=== PATIENT | male | born 1970 | race Caucasian/White ===

== ENCOUNTER 2018-12-11 09:12 | Outpatient (REF) | payer BC, SELFPAY ==
[2018-12-11 22:05] LABS: BUN 15 mg/dL (7-18); CREATININE 1.11 mg/dL (0.70-1.30); Calcium 9.2 mg/dL (8.5-10.1); Chloride 104 mmol/L (98-107); Cholesterol 205 mg/dL (50-200); Glucose 91 mg/dL (70-100); HDL Cholesterol 65 mg/dL (40-60); LDL CHOLESTEROL 126 mg/dL (<100); Potassium 4.2 mmol/L (3.5-5.1); Sodium 141 mmol/L (136-145); Triglyceride 77 mg/dL (30-150)
== END 2018-12-11 09:32 ==
LOC: NCHCN 09:12
PROVIDERS: Visit Provider Internal Medicine
DX: Z13.220 Encounter for screening for lipoid disorders; Z00.00 Encounter for general adult medical examination without abnormal findings
CPT/HCPCS: 80048; 80061; 83721

== ENCOUNTER 2019-05-20 14:57 | Outpatient (REF) | payer BC, SELFPAY ==
[2019-05-20 22:00] LABS: Abs Immature Grans 0.01 k/cumm (0.0-0.09); HCT 37.3 % (40.0-50.0); HGB 12.3 g/dL (13.5-17.5); Mean Corpuscular Hemoglobin 30.4 pg (27.0-33.0); Mean Corpuscular Volume 92.1 fL (80-95); Mean Platelet Volume 11.4 fL (8.0-11.0); RBC 4.05 m/cumm (4.50-6.00); RBC Distribution Width 12.2 % (11.8-14.1); White Blood Cell Count 2.48 k/cumm (4.4-10.8)
[2019-05-20 22:44] LABS: Platelet Count 89 x1000/uL (130-400)
[2019-05-20 22:45] LABS: Absolute Eosinophil Count 0.02 k/cumm (0.0-0.7); Absolute Lymphocyte Count 1.14 k/cumm (1.2-3.4); Atypical Lymphocytes % 13
[2019-05-20 22:47] LABS: Burr Cells (echinocyte) 2+; Diff Comment Manual Differential
[2019-05-20 23:10] LABS: Absolute Neutrophil Count 0.82 k/cumm (1.2-6.7)
[2019-05-21 20:17] LABS: ALT 106 U/L (12-78); AST 127 U/L (15-37); Albumin 3.6 g/dL (3.4-5.0); Alkaline Phosphatase 126 U/L (46-116); Anion Gap 11.9 mmol/L (3-11); BUN 10 mg/dL (7-18); Bilirubin, Total 0.9 mg/dL (0.2-1.0); CO2 29.1 mmol/L (21.0-32.0); CREATININE 1.04 mg/dL (0.70-1.30); Calcium 8.8 mg/dL (8.5-10.1); Chloride 99 mmol/L (98-107); Glucose 118 mg/dL (70-100); Potassium 3.4 mmol/L (3.5-5.1); Sodium 140 mmol/L (136-145); Total Protein 6.5 g/dL (6.4-8.2)
[2019-05-22 10:19] LABS: Lyme Ab w Rflx to Lyme Confirm Negative
== END 2019-05-20 15:17 ==
LOC: NCHCN 14:57
PROVIDERS: PCP Family Medicine; Visit Provider Family Medicine
DX: R50.9 Fever, unspecified (principal)
CPT/HCPCS: 80053; 85025; 86618

== ENCOUNTER 2021-07-01 16:42 | Outpatient (REF) | payer BC, SELFPAY ==
[2021-07-01 20:59] LABS: HGB 12.7 g/dL (13.5-17.5); MCH 30.5 pg (27.0-33.0); MCHC 32.6 % (32.0-36.0); MCV 93.5 fL (80-95); MPV 10.4 fL (8.0-11.0); Platelet Count 282 10^3/uL (130-400); RBC 4.17 10^6/uL (4.36-5.78); RDW 11.7 % (11.8-14.1); RDW-SD 40.2 fL; WBC 7.29 10^3/uL (4.4-10.8)
[2021-07-01 21:03] LABS: ALT 26 U/L (16-63); AST 21 U/L (15-37); Albumin 4.3 g/dL (3.4-5.0); Alkaline Phosphatase 53 U/L (46-116); Anion Gap 9.3 mmol/L (3-11); BUN 12 mg/dL (7-18); Bilirubin, Total 0.3 mg/dL (0.2-1.0); CO2 29.7 mmol/L (21.0-32.0); Calcium 9.2 mg/dL (8.5-10.1); Calculated LDL 104 mg/dL (<100); Chloride 103 mmol/L (98-107); Cholesterol 196 mg/dL (<200); Glucose 95 mg/dL (74-106); HDL Cholesterol 64 mg/dL (40-60); Potassium 3.9 mmol/L (3.5-5.1); Sodium 142 mmol/L (136-145); Total Protein 7.1 g/dL (6.4-8.2); Triglyceride 144 mg/dL (<150)
[2021-07-02 18:22] LABS: PSA, Screening 1.1 ng/mL (0.0-3.5)
== END 2021-07-01 16:43 | disposition home or self-care (01) ==
LOC: NCHCN 16:42
PROVIDERS: PCP Family Medicine; Visit Provider Internal Medicine
DX: Z00.00 Encounter for general adult medical examination without abnormal findings (principal); R79.89 Other specified abnormal findings of blood chemistry; Z13.220 Encounter for screening for lipoid disorders; Z12.5 Encounter for screening for malignant neoplasm of prostate
CPT/HCPCS: 80053; 80061; 84153; 85027

== ENCOUNTER 2024-06-17 18:04 | Outpatient (REF) | payer OTHER, SELFPAY ==
[2024-06-17 22:14] LABS: HCT 40.9 % (40.0-50.0); HGB 13.6 g/dL (13.5-17.5); MCH 31.3 pg (27.0-33.0); MCHC 33.3 % (32.0-36.0); MCV 94 fL (80-95); MPV 10.2 fL (8.0-11.0); Platelet Count 251 10^3/uL (130-400); RBC 4.34 10^6/uL (4.36-5.78); RDW 11.7 % (11.8-14.1); RDW-SD 40.1 fL; WBC 5.94 10^3/uL (4.4-10.8)
[2024-06-17 22:36] LABS: ALT 27 U/L (16-63); AST 25 U/L (15-37); Albumin 4.1 g/dL (3.4-5.0); Alkaline Phosphatase 59 U/L (46-116); Anion Gap 8.2 mmol/L (3-11); BUN 15 mg/dL (7-18); Bilirubin, Total 0.42 mg/dL (0.2-1.0); CO2 29.8 mmol/L (21.0-32.0); CREATININE 1.1 mg/dL (0.70-1.30); Calcium 9.3 mg/dL (8.5-10.1); Calculated LDL 96 mg/dL (<100); Chloride 103 mmol/L (98-107); Cholesterol 192 mg/dL (<200); Estimated GFR 79.77 (mL/min/1.73m2); Glucose 107 mg/dL (74-106); HDL Cholesterol 59 mg/dL (40-60); Potassium 4.5 mmol/L (3.5-5.1); Sodium 141 mmol/L (136-145); Total Protein 7.4 g/dL (6.4-8.2); Triglyceride 187 mg/dL (<150)
[2024-06-18 18:56] LABS: PSA, Screening 1.3 ng/mL (<=3.5)
== END 2024-06-17 18:05 | disposition home or self-care (01) ==
LOC: NCHCN 18:04
PROVIDERS: PCP Family Medicine; Visit Provider Internal Medicine
DX: Z00.00 Encounter for general adult medical examination without abnormal findings (principal); Z13.6 Encounter for screening for cardiovascular disorders; Z12.5 Encounter for screening for malignant neoplasm of prostate; Z13.228 Encounter for screening for other metabolic disorders; Z13.0 Encounter for screening for diseases of the blood and blood-forming organs and certain disorders involving the immune mechanism
CPT/HCPCS: 80053; 80061; 84153; 85027